=== PATIENT | female | born 1955 ===

== ENCOUNTER 2016-04-10 12:16 | Outpatient (CLI) | payer MEDICARE ==
--- NOTE | 2016-04-10 15:05 | RAD ---
CHEST TWO VIEWS: Date: 04-10-16 Comparison: No prior films were available for comparison. I did review a much older chest CT that showed a few small pulmonary nodules at the time. FINDINGS: The heart is normal in size. The right hilum seems a little more prominent than it should be compar ed to normal. Because of this, I would recommend a follow up CT with IV contrast if possible, to in vestigate the area to see if there is mass or adenopathy here. As the patient has had a prior PET C T study in 2008, that could be valuable as well. There are no effusions. No gross areas of bony de struction were seen. Faint calcification is probably present in the aortic arch. No major lobar in filtrate was seen. IMPRESSION: Right hilar prominence of indeterminate significance. Further work up needed to rule in or rule out pathology here. Code T POS: HOME
== END 2016-04-10 12:17 | disposition home or self-care (01) ==
LOC: BURRAD 12:16
PROVIDERS: ATTEND Clinical Nurse Specialist Medical-Surgical
DX: R76.11 Nonspecific reaction to tuberculin skin test without active tuberculosis (principal)
CPT/HCPCS: 71020

== ENCOUNTER 2017-05-14 09:03 | Inpatient (IN) | payer MEDICARE, OTHER ==
[2017-05-14] MEDS ORDERED: Digoxin 0.125 MG TAB PO PRN (16:01)
[2017-05-14] MEDS ORDERED: Acetaminophen 650 MG Suppository PR PRN (16:01)
[2017-05-14] MEDS ORDERED: HumaLOG 300 UNITS/3 ML VIAL SC PRN (16:01)
[2017-05-14] MEDS ORDERED: Ventolin HFA Inhaler 60 PUFF INHALER INH PRN (16:01)
[2017-05-14] MEDS: Gabapentin 300 MG CAP PO SCH ×2 (17:46→23:48)
[2017-05-14] MEDS ORDERED: Dextrose 5% in Water 1,000 ML IV PRN (18:12)
[2017-05-14] MEDS ORDERED: Dextrose 50% Abboject 50 ML SYRINGE IVP PRN (18:12)
[2017-05-14] MEDS: HumaLOG 300 UNITS/3 ML VIAL SC PRN (18:52)
[2017-05-14] MEDS: Mometasone/Formoterol 60 PUFF AER INH SCH (18:53)
[2017-05-14] MEDS: Ipratropium Bromide 2.5 ml Neb NEB SCH (18:54)
[2017-05-14] MEDS: Apixaban 5 MG TAB PO SCH (21:54)
[2017-05-14] MEDS: Montelukast Sodium 10 mg Tablet PO SCH (21:55)
[2017-05-14] MEDS: guaiFENesin ER 600 MG TAB PO SCH (21:55)
[2017-05-14] MEDS: Lorazepam 0.5 MG TAB PO SCH (21:55)
[2017-05-14] MEDS: Famotidine 20 MG TAB PO SCH (21:56)
[2017-05-14] MEDS: predniSONE 20 MG TAB PO SCH (21:56)
[2017-05-14] MEDS: Flecainide 50 MG TAB PO SCH (21:57)
[2017-05-14] MEDS: cycloSPORINE 0.05% Ophthalmic Droperette EA EYE SCH ×2 (21:57→22:01)
[2017-05-14] MEDS ORDERED: Levalbuterol HCl 0.63 MG/3 ML NEB NEB SCH (22:00)
[2017-05-14] MEDS: Albuterol Sulfate 1.25 MG/3 ML NEB NEB SCH (22:08)
[2017-05-14] MEDS: HYDROcodone/Acetaminophen 5/325 mg Tablet PO PRN (22:10)
[2017-05-14] MEDS: Cefdinir 300 MG CAP PO SCH (23:48)
[2017-05-15] MEDS: Ipratropium Bromide 2.5 ml Neb NEB SCH ×4 (00:59→18:45)
[2017-05-15] MEDS: Gabapentin 300 MG CAP PO SCH ×4 (05:27→23:10)
[2017-05-15] MEDS: Albuterol Sulfate 1.25 MG/3 ML NEB NEB SCH ×3 (05:28→21:52)
[2017-05-15] MEDS: Acetaminophen/Codeine 30-300mg Tablet PO PRN (05:29)
[2017-05-15] MEDS: Mometasone/Formoterol 60 PUFF AER INH SCH ×2 (05:42→19:05)
[2017-05-15] MEDS ORDERED: Non-Formulary Item 1 EACH (Insulin Glargine,Hum.Rec.Anlog [Lantus Solostar] 15 UNIT) SC SCH (07:30)
[2017-05-15] MEDS: Famotidine 20 MG TAB PO SCH ×2 (08:47→21:47)
[2017-05-15] MEDS: Flecainide 50 MG TAB PO SCH ×2 (08:48→21:47)
[2017-05-15] MEDS: Cefdinir 300 MG CAP PO SCH ×2 (08:48→21:47)
[2017-05-15] MEDS: Nebivolol HCl 5 MG TAB PO SCH (08:48)
[2017-05-15] MEDS: predniSONE 20 MG TAB PO SCH ×2 (08:49→21:47)
[2017-05-15] MEDS: guaiFENesin ER 600 MG TAB PO SCH ×2 (08:49→21:47)
[2017-05-15] MEDS: Apixaban 5 MG TAB PO SCH ×2 (08:50→21:48)
[2017-05-15] MEDS: cycloSPORINE 0.05% Ophthalmic Droperette EA EYE SCH ×2 (08:54→22:00)
[2017-05-15] MEDS: Lorazepam 0.5 MG TAB PO SCH ×3 (09:00→22:00)
[2017-05-15] MEDS ORDERED: Levemir Flexpen 100 UNITS/ML PEN SC SCH (09:00)
[2017-05-15] MEDS ORDERED: Spiriva 18 MCG CAP (Box of 5 Caps) INH SCH (09:00)
[2017-05-15] MEDS: HumaLOG 300 UNITS/3 ML VIAL SC PRN ×4 (09:05→23:13)
[2017-05-15] MEDS: Acetaminophen 325 MG TAB PO PRN ×2 (13:47→21:47)
[2017-05-15] MEDS: Montelukast Sodium 10 mg Tablet PO SCH (21:47)
[2017-05-16] MEDS: Ipratropium Bromide 2.5 ml Neb NEB SCH ×4 (01:15→18:36)
[2017-05-16] MEDS: Acetaminophen/Codeine 30-300mg Tablet PO PRN (05:19)
[2017-05-16] MEDS: Gabapentin 300 MG CAP PO SCH ×3 (05:19→17:51)
[2017-05-16] MEDS: Albuterol Sulfate 1.25 MG/3 ML NEB NEB SCH ×3 (05:21→21:42)
[2017-05-16] MEDS: Mometasone/Formoterol 60 PUFF AER INH SCH ×2 (05:53→18:47)
[2017-05-16] MEDS: Famotidine 20 MG TAB PO SCH ×2 (08:20→21:47)
[2017-05-16] MEDS: Nebivolol HCl 5 MG TAB PO SCH (08:20)
[2017-05-16] MEDS: Cefdinir 300 MG CAP PO SCH ×2 (08:20→21:46)
[2017-05-16] MEDS: guaiFENesin ER 600 MG TAB PO SCH ×2 (08:20→21:46)
[2017-05-16] MEDS: HumaLOG 300 UNITS/3 ML VIAL SC PRN ×4 (08:21→21:38)
[2017-05-16] MEDS: Levemir Flexpen 100 UNITS/ML PEN SC SCH ×2 (08:22→21:39)
[2017-05-16] MEDS: predniSONE 20 MG TAB PO SCH ×2 (08:23→21:49)
[2017-05-16] MEDS: Flecainide 50 MG TAB PO SCH ×2 (08:23→21:49)
[2017-05-16] MEDS: Apixaban 5 MG TAB PO SCH ×2 (08:23→21:48)
[2017-05-16] MEDS: cycloSPORINE 0.05% Ophthalmic Droperette EA EYE SCH ×2 (08:24→21:54)
[2017-05-16] MEDS: Lorazepam 0.5 MG TAB PO SCH ×3 (08:24→21:49)
[2017-05-16] MEDS: Montelukast Sodium 10 mg Tablet PO SCH (21:47)
[2017-05-17] MEDS: HYDROcodone/Acetaminophen 5/325 mg Tablet PO PRN ×2 (00:09→23:06)
[2017-05-17] MEDS: Gabapentin 300 MG CAP PO SCH ×5 (00:09→22:41)
[2017-05-17] MEDS: Ipratropium Bromide 2.5 ml Neb NEB SCH ×4 (02:34→18:28)
[2017-05-17] MEDS: Acetaminophen/Codeine 30-300mg Tablet PO PRN (05:24)
[2017-05-17] MEDS: Albuterol Sulfate 1.25 MG/3 ML NEB NEB SCH ×3 (05:50→22:44)
[2017-05-17] MEDS: Mometasone/Formoterol 60 PUFF AER INH SCH ×2 (06:31→18:29)
[2017-05-17] MEDS ORDERED: cycloSPORINE 0.05% Ophthalmic Droperette EA EYE PRN (07:17)
[2017-05-17] MEDS: Apixaban 5 MG TAB PO SCH ×2 (09:39→20:18)
[2017-05-17] MEDS: Flecainide 50 MG TAB PO SCH ×2 (09:39→20:19)
[2017-05-17] MEDS: guaiFENesin ER 600 MG TAB PO SCH ×2 (09:39→20:20)
[2017-05-17] MEDS: Nebivolol HCl 5 MG TAB PO SCH (09:40)
[2017-05-17] MEDS: predniSONE 20 MG TAB PO SCH ×2 (09:41→21:01)
[2017-05-17] MEDS: Cefdinir 300 MG CAP PO SCH ×2 (09:41→20:18)
[2017-05-17] MEDS: Famotidine 20 MG TAB PO SCH ×2 (09:41→20:20)
[2017-05-17] MEDS: HumaLOG 300 UNITS/3 ML VIAL SC PRN ×4 (09:42→20:38)
[2017-05-17] MEDS: Levemir Flexpen 100 UNITS/ML PEN SC SCH ×2 (09:42→20:36)
[2017-05-17] MEDS: Acetaminophen 325 MG TAB PO PRN ×2 (15:36→20:20)
[2017-05-17] MEDS: Montelukast Sodium 10 mg Tablet PO SCH (20:20)
[2017-05-18] MEDS: Ipratropium Bromide 2.5 ml Neb NEB SCH ×4 (01:54→18:11)
[2017-05-18 05:31] LABS: Platelet Count 192 thou/uL (130-400)
[2017-05-18 05:36] LABS: Calc. Creatinine Clearance 91 mL/min (70-130); Estimated GFR-MDRD Greater than 90
[2017-05-18] MEDS: Albuterol Sulfate 1.25 MG/3 ML NEB NEB SCH ×3 (05:57→21:40)
[2017-05-18] MEDS: Gabapentin 300 MG CAP PO SCH ×4 (05:57→23:39)
[2017-05-18] MEDS: Mometasone/Formoterol 60 PUFF AER INH SCH ×2 (05:59→18:26)
[2017-05-18] MEDS: Digoxin 0.125 MG TAB PO SCH (09:32)
[2017-05-18] MEDS: Cefdinir 300 MG CAP PO SCH ×2 (09:32→21:31)
[2017-05-18] MEDS: Famotidine 20 MG TAB PO SCH ×2 (09:33→21:33)
[2017-05-18] MEDS: Flecainide 50 MG TAB PO SCH ×2 (09:33→21:33)
[2017-05-18] MEDS: Apixaban 5 MG TAB PO SCH ×2 (09:34→21:32)
[2017-05-18] MEDS: guaiFENesin ER 600 MG TAB PO SCH ×2 (09:35→21:32)
[2017-05-18] MEDS: Nebivolol HCl 5 MG TAB PO SCH (09:35)
[2017-05-18] MEDS: predniSONE 20 MG TAB PO SCH ×2 (09:35→21:33)
[2017-05-18] MEDS: Levemir Flexpen 100 UNITS/ML PEN SC SCH ×2 (09:38→21:37)
[2017-05-18] MEDS: HumaLOG 300 UNITS/3 ML VIAL SC PRN ×2 (18:40→21:35)
[2017-05-18] MEDS: Montelukast Sodium 10 mg Tablet PO SCH (21:32)
[2017-05-18] MEDS: Acetaminophen 325 MG TAB PO PRN (21:34)
[2017-05-19] MEDS: Ipratropium Bromide 2.5 ml Neb NEB SCH ×4 (00:28→18:39)
[2017-05-19] MEDS: HYDROcodone/Acetaminophen 5/325 mg Tablet PO PRN ×2 (00:34→23:53)
[2017-05-19] MEDS: Albuterol Sulfate 1.25 MG/3 ML NEB NEB SCH ×3 (05:52→21:49)
[2017-05-19] MEDS: Gabapentin 300 MG CAP PO SCH ×4 (05:56→23:53)
[2017-05-19] MEDS: Mometasone/Formoterol 60 PUFF AER INH SCH ×2 (06:33→18:35)
[2017-05-19] MEDS: Cefdinir 300 MG CAP PO SCH ×2 (09:09→21:42)
[2017-05-19] MEDS: predniSONE 20 MG TAB PO SCH (09:09)
[2017-05-19] MEDS: Flecainide 50 MG TAB PO SCH ×2 (09:10→21:41)
[2017-05-19] MEDS: Apixaban 5 MG TAB PO SCH ×2 (09:10→21:41)
[2017-05-19] MEDS: guaiFENesin ER 600 MG TAB PO SCH ×2 (09:10→21:42)
[2017-05-19] MEDS: Famotidine 20 MG TAB PO SCH ×2 (09:11→21:41)
[2017-05-19] MEDS: Digoxin 0.125 MG TAB PO SCH (09:11)
[2017-05-19] MEDS: Nebivolol HCl 5 MG TAB PO SCH (09:14)
[2017-05-19] MEDS: HumaLOG 300 UNITS/3 ML VIAL SC PRN ×4 (09:27→21:46)
[2017-05-19] MEDS: Levemir Flexpen 100 UNITS/ML PEN SC SCH ×2 (09:28→21:42)
[2017-05-19] MEDS: Acetaminophen 325 MG TAB PO PRN (14:12)
[2017-05-19] MEDS: Montelukast Sodium 10 mg Tablet PO SCH (21:42)
[2017-05-20] MEDS: Ipratropium Bromide 2.5 ml Neb NEB SCH ×4 (00:06→18:29)
[2017-05-20] MEDS: Albuterol Sulfate 1.25 MG/3 ML NEB NEB SCH ×3 (05:46→22:23)
[2017-05-20] MEDS: Gabapentin 300 MG CAP PO SCH ×4 (05:47→22:40)
[2017-05-20] MEDS: Acetaminophen/Codeine 30-300mg Tablet PO PRN (05:48)
[2017-05-20] MEDS: Mometasone/Formoterol 60 PUFF AER INH SCH ×2 (05:49→18:35)
[2017-05-20 06:01] LABS: Hemoglobin 11.6 g/dL (12.0-16.0); Platelet Count 163 thou/uL (130-400)
[2017-05-20 06:09] LABS: Calc. Creatinine Clearance 97 mL/min (70-130); Estimated GFR-MDRD Greater than 90
[2017-05-20] MEDS: guaiFENesin ER 600 MG TAB PO SCH ×2 (09:08→21:05)
[2017-05-20] MEDS: Cefdinir 300 MG CAP PO SCH ×2 (09:09→21:03)
[2017-05-20] MEDS: Famotidine 20 MG TAB PO SCH ×2 (09:09→21:04)
[2017-05-20] MEDS: Apixaban 5 MG TAB PO SCH ×2 (09:10→21:04)
[2017-05-20] MEDS: predniSONE 10 MG TAB PO SCH ×2 (09:10→21:05)
[2017-05-20] MEDS: Flecainide 50 MG TAB PO SCH ×2 (09:11→21:06)
[2017-05-20] MEDS: Nebivolol HCl 5 MG TAB PO SCH (09:13)
[2017-05-20] MEDS: Digoxin 0.125 MG TAB PO SCH (09:14)
[2017-05-20] MEDS: Levemir Flexpen 100 UNITS/ML PEN SC SCH ×2 (09:16→21:01)
[2017-05-20] MEDS: HumaLOG 300 UNITS/3 ML VIAL SC PRN ×3 (12:52→21:01)
[2017-05-20] MEDS: Acetaminophen 325 MG TAB PO PRN (14:25)
[2017-05-20] MEDS: Lorazepam 0.5 MG TAB PO PRN (18:48)
[2017-05-20] MEDS: Montelukast Sodium 10 mg Tablet PO SCH (21:04)
[2017-05-20] MEDS: HYDROcodone/Acetaminophen 5/325 mg Tablet PO PRN (22:40)
[2017-05-21] MEDS: Ipratropium Bromide 2.5 ml Neb NEB SCH ×4 (01:30→18:27)
[2017-05-21] MEDS: Gabapentin 300 MG CAP PO SCH ×3 (06:01→18:16)
[2017-05-21] MEDS: Albuterol Sulfate 1.25 MG/3 ML NEB NEB SCH ×3 (06:02→21:16)
[2017-05-21] MEDS: Alendronate Sodium 70 mg Tablet PO SCH (06:02)
[2017-05-21] MEDS: Mometasone/Formoterol 60 PUFF AER INH SCH ×2 (06:15→18:17)
[2017-05-21] MEDS: Apixaban 5 MG TAB PO SCH ×2 (09:20→21:07)
[2017-05-21] MEDS: Cefdinir 300 MG CAP PO SCH ×2 (09:21→21:05)
[2017-05-21] MEDS: Famotidine 20 MG TAB PO SCH ×2 (09:21→21:06)
[2017-05-21] MEDS: guaiFENesin ER 600 MG TAB PO SCH ×2 (09:21→21:05)
[2017-05-21] MEDS: predniSONE 10 MG TAB PO SCH ×2 (09:22→21:06)
[2017-05-21] MEDS: Flecainide 50 MG TAB PO SCH ×2 (09:23→21:09)
[2017-05-21] MEDS: Digoxin 0.125 MG TAB PO SCH (09:23)
[2017-05-21] MEDS: Levemir Flexpen 100 UNITS/ML PEN SC SCH ×2 (09:27→21:10)
[2017-05-21] MEDS: HumaLOG 300 UNITS/3 ML VIAL SC PRN ×3 (09:28→21:15)
[2017-05-21] MEDS: Nebivolol HCl 5 MG TAB PO SCH (12:52)
[2017-05-21] MEDS: Lorazepam 0.5 MG TAB PO PRN (12:52)
[2017-05-21] MEDS: Montelukast Sodium 10 mg Tablet PO SCH (21:10)
[2017-05-22] MEDS: Gabapentin 300 MG CAP PO SCH ×4 (00:12→17:37)
[2017-05-22] MEDS: Ipratropium Bromide 2.5 ml Neb NEB SCH ×4 (00:12→18:46)
[2017-05-22] MEDS: Mometasone/Formoterol 60 PUFF AER INH SCH ×2 (06:11→18:42)
[2017-05-22] MEDS: Albuterol Sulfate 1.25 MG/3 ML NEB NEB SCH ×3 (06:13→21:18)
[2017-05-22 06:51] LABS: Calc. Creatinine Clearance 86 mL/min (70-130); Estimated GFR-MDRD Greater than 90
[2017-05-22 07:15] LABS: Hemoglobin 11.3 g/dL (12.0-16.0); Platelet Count 179 thou/uL (130-400)
[2017-05-22] MEDS: guaiFENesin ER 600 MG TAB PO SCH ×2 (09:13→21:11)
[2017-05-22] MEDS: Famotidine 20 MG TAB PO SCH ×2 (09:13→21:12)
[2017-05-22] MEDS: predniSONE 10 MG TAB PO SCH ×2 (09:13→21:13)
[2017-05-22] MEDS: Nebivolol HCl 5 MG TAB PO SCH (09:14)
[2017-05-22] MEDS: Flecainide 50 MG TAB PO SCH ×2 (09:14→21:12)
[2017-05-22] MEDS: Apixaban 5 MG TAB PO SCH ×2 (09:15→21:11)
[2017-05-22] MEDS: Digoxin 0.125 MG TAB PO SCH (09:16)
[2017-05-22] MEDS: Levemir Flexpen 100 UNITS/ML PEN SC SCH ×2 (09:17→21:15)
[2017-05-22] MEDS: HumaLOG 300 UNITS/3 ML VIAL SC PRN ×4 (09:18→21:16)
[2017-05-22] MEDS: Acetaminophen 325 MG TAB PO PRN (18:52)
[2017-05-22] MEDS: Montelukast Sodium 10 mg Tablet PO SCH (21:12)
[2017-05-23] MEDS: Gabapentin 300 MG CAP PO SCH ×5 (00:16→23:14)
[2017-05-23] MEDS: Ipratropium Bromide 2.5 ml Neb NEB SCH ×4 (00:20→18:53)
[2017-05-23] MEDS: HYDROcodone/Acetaminophen 5/325 mg Tablet PO PRN ×2 (01:04→23:13)
[2017-05-23] MEDS: Albuterol Sulfate 1.25 MG/3 ML NEB NEB SCH ×3 (06:17→22:55)
[2017-05-23] MEDS: Mometasone/Formoterol 60 PUFF AER INH SCH ×2 (06:18→18:48)
[2017-05-23] MEDS: Apixaban 5 MG TAB PO SCH ×2 (09:28→20:46)
[2017-05-23] MEDS: guaiFENesin ER 600 MG TAB PO SCH ×2 (09:29→20:47)
[2017-05-23] MEDS: predniSONE 10 MG TAB PO SCH ×2 (09:29→20:46)
[2017-05-23] MEDS: Flecainide 50 MG TAB PO SCH ×2 (09:30→20:46)
[2017-05-23] MEDS: Nebivolol HCl 5 MG TAB PO SCH (09:30)
[2017-05-23] MEDS: Famotidine 20 MG TAB PO SCH ×2 (09:31→20:47)
[2017-05-23] MEDS: Digoxin 0.125 MG TAB PO SCH (09:31)
[2017-05-23] MEDS: Levemir Flexpen 100 UNITS/ML PEN SC SCH ×2 (09:32→20:42)
[2017-05-23] MEDS: HumaLOG 300 UNITS/3 ML VIAL SC PRN ×4 (09:36→20:41)
[2017-05-23] MEDS: Acetaminophen/Codeine 30-300mg Tablet PO PRN (09:40)
[2017-05-23] MEDS: Acetaminophen 325 MG TAB PO PRN (20:43)
[2017-05-23] MEDS: Montelukast Sodium 10 mg Tablet PO SCH (20:47)
[2017-05-24] MEDS: Ipratropium Bromide 2.5 ml Neb NEB SCH ×4 (00:53→18:15)
[2017-05-24] MEDS: Acetaminophen/Codeine 30-300mg Tablet PO PRN ×2 (02:52→14:36)
[2017-05-24] MEDS: Mometasone/Formoterol 60 PUFF AER INH SCH ×2 (05:58→18:28)
[2017-05-24] MEDS: Gabapentin 300 MG CAP PO SCH ×4 (06:00→23:57)
[2017-05-24] MEDS: Albuterol Sulfate 1.25 MG/3 ML NEB NEB SCH ×3 (06:06→21:38)
[2017-05-24] MEDS: predniSONE 10 MG TAB PO SCH ×2 (07:56→21:40)
[2017-05-24] MEDS: Apixaban 5 MG TAB PO SCH (07:57)
[2017-05-24] MEDS: Flecainide 50 MG TAB PO SCH ×2 (07:57→21:40)
[2017-05-24] MEDS: Digoxin 0.125 MG TAB PO SCH (07:58)
[2017-05-24] MEDS: Nebivolol HCl 5 MG TAB PO SCH (07:59)
[2017-05-24] MEDS: Famotidine 20 MG TAB PO SCH ×2 (07:59→21:40)
[2017-05-24] MEDS: guaiFENesin ER 600 MG TAB PO SCH ×2 (07:59→21:40)
[2017-05-24] MEDS: Levemir Flexpen 100 UNITS/ML PEN SC SCH ×2 (08:01→21:37)
[2017-05-24] MEDS: Acetaminophen 325 MG TAB PO PRN (08:06)
[2017-05-24] MEDS: Lorazepam 0.5 MG TAB PO PRN (08:06)
[2017-05-24] MEDS: HumaLOG 300 UNITS/3 ML VIAL SC PRN ×3 (08:06→21:38)
[2017-05-24] MEDS: Montelukast Sodium 10 mg Tablet PO SCH (21:40)
[2017-05-24] MEDS: HYDROcodone/Acetaminophen 5/325 mg Tablet PO PRN (23:57)
[2017-05-25] MEDS: Ipratropium Bromide 2.5 ml Neb NEB SCH ×4 (00:06→19:25)
[2017-05-25 05:40] LABS: Hemoglobin 12.1 g/dL (12.0-16.0); Platelet Count 219 thou/uL (130-400)
[2017-05-25] MEDS: Gabapentin 300 MG CAP PO SCH ×4 (05:40→23:24)
[2017-05-25] MEDS: Albuterol Sulfate 1.25 MG/3 ML NEB NEB SCH ×3 (05:44→21:02)
[2017-05-25] MEDS: Mometasone/Formoterol 60 PUFF AER INH SCH ×2 (05:45→19:26)
[2017-05-25 05:49] LABS: Calc. Creatinine Clearance 80 mL/min (70-130); Estimated GFR-MDRD Greater than 90
[2017-05-25] MEDS: Flecainide 50 MG TAB PO SCH ×2 (09:29→21:00)
[2017-05-25] MEDS: Famotidine 20 MG TAB PO SCH ×2 (09:29→20:59)
[2017-05-25] MEDS: Digoxin 0.125 MG TAB PO SCH (09:29)
[2017-05-25] MEDS: guaiFENesin ER 600 MG TAB PO SCH ×2 (09:30→21:00)
[2017-05-25] MEDS: Nebivolol HCl 5 MG TAB PO SCH (09:30)
[2017-05-25] MEDS: predniSONE 10 MG TAB PO SCH ×2 (09:31→20:59)
[2017-05-25] MEDS: Levemir Flexpen 100 UNITS/ML PEN SC SCH ×2 (09:32→21:00)
[2017-05-25] MEDS: HumaLOG 300 UNITS/3 ML VIAL SC PRN ×4 (09:33→21:00)
[2017-05-25] MEDS ORDERED: Lorazepam 0.5 MG TAB ONE ×2 (13:33→23:21)
[2017-05-25] MEDS: Lorazepam 0.5 MG TAB PO PRN ×2 (13:35→23:25)
[2017-05-25] MEDS: Montelukast Sodium 10 mg Tablet PO SCH (21:00)
[2017-05-26] MEDS: HYDROcodone/Acetaminophen 5/325 mg Tablet PO PRN ×2 (00:43→21:12)
[2017-05-26] MEDS: Ipratropium Bromide 2.5 ml Neb NEB SCH ×4 (00:45→18:33)
[2017-05-26] MEDS: Gabapentin 300 MG CAP PO SCH ×3 (05:53→17:48)
[2017-05-26] MEDS: Albuterol Sulfate 1.25 MG/3 ML NEB NEB SCH ×3 (05:57→21:16)
[2017-05-26] MEDS: Mometasone/Formoterol 60 PUFF AER INH SCH ×2 (05:58→18:28)
[2017-05-26] MEDS: Levemir Flexpen 100 UNITS/ML PEN SC SCH ×2 (08:36→21:08)
[2017-05-26] MEDS: guaiFENesin ER 600 MG TAB PO SCH ×2 (08:37→21:12)
[2017-05-26] MEDS: Nebivolol HCl 5 MG TAB PO SCH (08:38)
[2017-05-26] MEDS: Flecainide 50 MG TAB PO SCH ×2 (08:38→21:12)
[2017-05-26] MEDS: predniSONE 10 MG TAB PO SCH ×2 (08:39→21:11)
[2017-05-26] MEDS: Famotidine 20 MG TAB PO SCH ×2 (08:39→21:12)
[2017-05-26] MEDS: Digoxin 0.125 MG TAB PO SCH (08:40)
[2017-05-26] MEDS: HumaLOG 300 UNITS/3 ML VIAL SC PRN ×4 (08:41→21:09)
[2017-05-26 10:12] VITALS: BMI 18.0
[2017-05-26] MEDS: Montelukast Sodium 10 mg Tablet PO SCH (21:12)
[2017-05-27] MEDS: Gabapentin 300 MG CAP PO SCH ×5 (00:14→23:57)
[2017-05-27] MEDS: Ipratropium Bromide 2.5 ml Neb NEB SCH ×4 (00:16→17:57)
--- NOTE | 2017-05-27 02:25 | HP ---
DATE OF ADMISSION: 05/14/2017 CHIEF COMPLAINT: Physical deconditioning. HISTORY OF PRESENT ILLNESS: A 62-year-old female who was transferred from [facility] to our facility to participate with physical therapy and occupational therapy related to her physical deconditioning that developed during her extended hospital admission from 04/29/2017 to 05/14/2017. The patient initially presented with acute hypoxic and hypercapnic respiratory failure secondary to pneumonia and her underlying chronic obstructive pulmonary disease. She was treated with oxygen, steroids, bronchodilators and antibiotics and is to complete a 1-week course of cefdinir while here. On 05/04, patient had a CT scan of her chest which showed soft-tissue density filling the bronchi of the right lower lobe right middle lobe. Neoplasm versus mucus plugging were primary considerations. She also had parenchymal opacities throughout the right lung including some mass-like configurations. She had small right pleural effusion. Of note, the patient does have history of allergic bronchial aspergillosis. She underwent bronchoscopy on 05/06/2017 which showed right mainstem necrotic mass including entire right lung. Biopsy and cytology were nondiagnostic at that time. However, she had repeat bronchoscopy with biopsy with subsequent cytology and biopsy both being positive for squamous cell carcinoma, moderately differentiated. The patient elected to follow up for these issues with her manager cash, Dr. Daniel Zendejas and oncologist, Dr. Christina at [facility]. As previously stated, the patient' s physical deconditioning has prohibited her from returning to her home at this time, so she is to participate with PT, OT here along with completing her course of antibiotics as directed. 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 PAST SURGICAL HISTORY: Right tonsillectomy and right mastectomy, bone marrow transplant, bronchoscopy x2. SOCIAL HISTORY: Former smoker. Quit in 2003. Denies alcohol or illicit drug use. FAMILY HISTORY: Noncontributory. ALLERGIES: SULFA. CURRENT MEDICATIONS: Tylenol Arthritis 650 mg q.i.d. p.r.n., Tylenol suppositories 650 mg q.4 hours p.r.n., Tylenol #3 one tablet q.8 hours p.r.n., Fosamax 70 mg weekly, Eliquis 2.5 mg p.o. b.i.d., Symbicort 2 puffs b.i.d., vitamin D3 of 1000 units daily, digoxin 0.125 mg p.o. daily, diltiazem CD 180 mg p.o. daily, flecainide 50 mg p.o. b.i.d., gabapentin 600 mg p.o. q.6 hours, Mucinex 600 mg p.o. b.i.d., Humalog insulin sliding scale, Lantus insulin 15 units daily, Xopenex nebulizers q.8 hours, Ativan 0.5 mg p.o. t.i.d., Singulair 10 mg p.o. at bedtime, nebivolol 2.5 mg p.o. daily, prednisone taper, Restasis eye drops, Spiriva 18 mcg inhaled daily, Ventolin inhaler p.r.n. REVIEW OF SYSTEMS: General: The patient complains of fatigue. She denies fever. Ear, Nose, and Throat: Denies sore throat, nasal drainage or congestion. Cardiovascular: Denies chest pain. Respiratory: Denies shortness of breath and occasional cough. Gastrointestinal: Denies abdominal pain, nausea, vomiting, diarrhea or constipation. Genitourinary: Denies dysuria. Musculoskeletal: Denies joint swelling. Dermatologic: Denies rash. Neurologic: Denies headache. LABORATORY DATA: None are pending. PHYSICAL EXAMINATION: GENERAL: The patient is thin, alert, and oriented, in no acute distress. FACE: No asymmetry. EYES: Conjunctivae are clear. Extraocular muscles are intact bilaterally. No discharge. HEENT: Within normal limits. Oral cavity has moist mucous membranes. NECK/THYROID: Supple, full range of motion. No lymphadenopathy, no meningeal signs. CARDIOVASCULAR: Regular rate. Normal S1, S2. No murmurs. RESPIRATORY: Decreased breath sounds bilaterally. No wheezes. Nasal cannula in place. Few scattered crackles. GASTROINTESTINAL: Soft, nontender to palpation, no masses. EXTREMITIES: No clubbing, cyanosis or edema. SKIN: Normal, no rashes. NEUROLOGICAL: Nonfocal. Cranial nerves II-XII grossly intact. ASSESSMENT AND PLAN: 1. Physical deconditioning. The patient will participate with physical therapy , occupational therapy. She will need a consultation from social worker health services to set up home health upon discharge from our facility. 2. community-acquired pneumonia. The patient will complete a 1-week course of oral cefdinir as directed. 3. Chronic obstructive pulmonary disease. The patient will resume her usual medications including her controlling meds and nebulized medications. She will be continued on her supplemental oxygen. 4. Squamous cell carcinoma of the lung. The patient is to follow up with her manager cash, Dr. Daniel Zendejas and her oncologist Dr. Christina regarding this diagnosis. Subsequent appointments are to be scheduled. 5. Atrial fibrillation. We will continue the patient on her usual Eliquis dosing. 6. Type 2 diabetes mellitus. We will continue the patient on her basal insulin along with the mealtime sliding scale and adjust as indicated. 7. Prophylaxis. The patient will be continued on H2 marcella and Eliquis for anticoagulation therapy. The patient's status is DNI, but amenable to chest compression as indicated. Patient's power of corporate associate attorney is her son named Horace Velasquez. KERRI
[2017-05-27 05:44] LABS: Calc. Creatinine Clearance 88 mL/min (70-130); Estimated GFR-MDRD Greater than 90
[2017-05-27] MEDS: Albuterol Sulfate 1.25 MG/3 ML NEB NEB SCH ×3 (05:49→22:01)
[2017-05-27 06:05] LABS: Hemoglobin 12.2 g/dL (12.0-16.0); Platelet Count 200 thou/uL (130-400)
[2017-05-27] MEDS: Mometasone/Formoterol 60 PUFF AER INH SCH ×2 (06:11→17:52)
[2017-05-27] MEDS: guaiFENesin ER 600 MG TAB PO SCH ×2 (08:07→21:22)
[2017-05-27] MEDS: Famotidine 20 MG TAB PO SCH ×2 (08:07→21:22)
[2017-05-27] MEDS: predniSONE 10 MG TAB PO SCH ×2 (08:07→21:22)
[2017-05-27] MEDS: Nebivolol HCl 5 MG TAB PO SCH (08:08)
[2017-05-27] MEDS: Flecainide 50 MG TAB PO SCH ×2 (08:09→21:21)
[2017-05-27] MEDS: Digoxin 0.125 MG TAB PO SCH (08:10)
[2017-05-27] MEDS: Levemir Flexpen 100 UNITS/ML PEN SC SCH ×2 (08:12→22:00)
[2017-05-27] MEDS: HumaLOG 300 UNITS/3 ML VIAL SC PRN ×4 (08:13→21:59)
[2017-05-27] MEDS: Montelukast Sodium 10 mg Tablet PO SCH (21:22)
[2017-05-28] MEDS: Gabapentin 300 MG CAP PO SCH ×3 (00:43→12:06)
[2017-05-28] MEDS: HYDROcodone/Acetaminophen 5/325 mg Tablet PO PRN (00:43)
[2017-05-28] MEDS: Ipratropium Bromide 2.5 ml Neb NEB SCH ×3 (00:44→12:07)
[2017-05-28] MEDS: Albuterol Sulfate 1.25 MG/3 ML NEB NEB SCH ×2 (05:48→12:07)
[2017-05-28] MEDS: Alendronate Sodium 70 mg Tablet PO SCH (05:49)
[2017-05-28] MEDS: Mometasone/Formoterol 60 PUFF AER INH SCH (06:21)
[2017-05-28 06:44] VITALS: BP 121/67; TEMP 97.5
--- NOTE | 2017-05-28 08:51 | DIS ---
DATE OF ADMISSION: 05/14/2017 DATE OF DISCHARGE: 05/28/2017 ADMISSION DIAGNOSES: Community-acquired pneumonia, chronic obstructive pulmonary disease, squamous cell carcinoma of the lung, atrial fibrillation, type 2 diabetes mellitus, physical deconditioning, history of asthma, history of allergic bronchial pulmonary aspergillosis. PROCEDURES: Patient participated with physical therapy and occupational therapy. Otherwise, no procedures. HOSPITAL COURSE: This is a 62-year-old female, who was initially admitted at [facility] in [place] due to acute hypoxic and hypercapnic respiratory failure secondary to pneumonia and her underlying chronic obstructive pulmonary disease. She was effectively treated with steroids, bronchodilators, and antibiotics, and continued on her supplemental oxygen. She was directed to complete a 1-week course of cefdinir at our facility, which she has been able to do. She came to our facility to further participate with physical therapy and occupational therapy secondary to her noted physical deconditioning. During her initial stay, she had 2 bronchoscopies done with the second one concluding with a biopsy and cytology to be positive for squamous cell carcinoma , moderately differentiated. During her stay here, she did have a subsequent CT scan for staging at a separate facility with further followup with her oncologist, Dr. Christina, and her analytic programmer, Dr. Daniel Zendejas. She has been directed to have a repeat bronchoscopy, which is to be accomplished next week with further followup thereafter; due to this, her Eliquis is currently being held, and the patient is aware of need to continue holding this medication until her bronchoscopy is completed. During the patient's stay, her Levemir was up-titrated secondary to elevated glucose readings. Her prednisone taper was continued and will be continued upon discharge. Her respiratory status has remained stable throughout her stay, and her strength gradually improved with participation with PT/OT to the point where she is able to now actively discharge to her home setting under further guidance with [facility]. DISCHARGE DISPOSITION: The patient will be discharged to her home today with further physical therapy and occupational therapy to be provided via [facility]. She will follow up with her oncologist, Dr. Christina. She will also follow up with Dr. Daniel Zendejas, who is her analytic programmer. DISCHARGE MEDICATIONS: Tylenol 650 mg q.4 hours p.r.n.; Tylenol #3 one tab p.o. q.8 hours p.r.n.; Fosamax 70 mg weekly; Eliquis 2.5 mg p.o. b.i.d., however , this will be held until her bronchoscopy is completed next week; Symbicort 2 puffs b.i.d.; vitamin D3 1000 units daily; digoxin 0.125 mg p.o. daily; diltiazem CD 180 mg p.o. daily; flecainide 50 mg p.o. b.i.d.; gabapentin 600 mg p.o. q.6 hours; Mucinex 600 mg p.o. b.i.d.; Humalog insulin sliding scale, Lantus 25 units a.m. and 10 units p.m., Xopenex nebulizers q.8 hours, Ativan 0.5 mg p.o. t.i.d., Singular 10 mg at bedtime, nebivolol 2.5 mg p.o. daily, Restasis eye drops, Spiriva 18 mcg inhaled daily, Ventolin inhaler p.r.n., prednisone taper 10 mg p.o. b.i.d. x7 days followed by 5 mg p.o. b.i.d. x7 days. MTDD
[2017-05-28] MEDS: Nebivolol HCl 5 MG TAB PO SCH (09:14)
[2017-05-28] MEDS: guaiFENesin ER 600 MG TAB PO SCH (09:14)
[2017-05-28] MEDS: Famotidine 20 MG TAB PO SCH (09:14)
[2017-05-28] MEDS: Flecainide 50 MG TAB PO SCH (09:16)
[2017-05-28] MEDS: predniSONE 10 MG TAB PO SCH (09:16)
[2017-05-28] MEDS: Digoxin 0.125 MG TAB PO SCH (09:16)
[2017-05-28] MEDS: Levemir Flexpen 100 UNITS/ML PEN SC SCH (09:19)
[2017-05-28] MEDS: HumaLOG 300 UNITS/3 ML VIAL SC PRN (09:21)
[2017-05-30] MEDS ORDERED: predniSONE 10 MG TAB PO SCH (09:00)
== END 2017-05-28 12:45 | disposition home health service (06) | DRG 194 ==
LOC: BURMED 12:10
PROVIDERS: ADMIT Family Medicine; ATTEND Family Medicine
DX: J18.9 Pneumonia, unspecified organism (principal); Z94.81 Bone marrow transplant status; B44.81 Allergic bronchopulmonary aspergillosis; C34.91 Malignant neoplasm of unspecified part of right bronchus or lung; Z99.81 Dependence on supplemental oxygen; C92.01 Acute myeloblastic leukemia, in remission; J44.0 Chronic obstructive pulmonary disease with (acute) lower respiratory infection; R53.1 Weakness; I48.2 Chronic atrial fibrillation; J44.9 Chronic obstructive pulmonary disease, unspecified; Z85.3 Personal history of malignant neoplasm of breast; Z90.11 Acquired absence of right breast and nipple; Z92.3 Personal history of irradiation; E11.9 Type 2 diabetes mellitus without complications; Z87.891 Personal history of nicotine dependence; Z88.2 Allergy status to sulfonamides; Z79.01 Long term (current) use of anticoagulants; Z79.4 Long term (current) use of insulin; Z79.51 Long term (current) use of inhaled steroids
CPT/HCPCS: 36415; 36416; 82565; 85014; 85018; 85049; 94640; 94664; G8978-GP-CL; G8979-GP-CJ; G8987-GO-CK; G8988-GO-CI; J1815; J7506; J7512; J7644